=== PATIENT | female | born 1930 | race Caucasian/White ===

== ENCOUNTER 2020-11-25 13:39 | Inpatient (IN) | payer MEDICARE, OTHER ==
[~2020-11-25] VITALS: Ht 160 cm; Wt 79.4 kg
--- NOTE | 2020-11-25 14:00 | NUR ---
tr placed pt on vapotherm luis flow oxygen, 40 litre/100%, per md order.
--- NOTE | 2020-11-25 14:26 | NUR ---
PT UNABLE TO PROVIDE INFORMATION ON MEDICATIONS AT THIS TIME.
[2020-11-25 15:02] LABS: CREATININE 0.8 mg/dL (0.6-1.3); POTASSIUM 3.6 mmol/L (3.5-5.1)
[2020-11-25 15:06] LABS: BASOPHILS % (AUTO) 0.3 % (0.0-2.0); HEMATOCRIT 35.5 % (31.2-41.9); HEMOGLOBIN 11.9 g/dL (10.9-14.3); LYMPHOCYTES # (AUTO) 0.5 K/uL (20.0-40.0); LYMPHOCYTES % (AUTO) 4.5 % (20.5-51.5); MEAN CORPUSCULAR HEMOGLOBIN 30.6 uug (24.7-32.8); MEAN CORPUSCULAR HGB CONC 34 g/dL (32.3-35.6); MEAN CORPUSCULAR VOLUME 91.3 fL (75.5-95.3); MONOCYTES # (AUTO) 0.5 K/uL (2.0-10.0); MONOCYTES % (AUTO) 5.3 % (0.0-11.0); NEUTROPHILS # (AUTO) 9.2 K/uL (1.8-8.9); NEUTROPHILS % (AUTO) 89.9 % (38.5-71.5); PLATELET COUNT (AUTO) 163 K/uL (179-408); RED BLOOD CELL COUNT(AUTO) 3.89 MIL/uL (3.63-4.92); WHITE BLOOD COUNT (AUTO) 10.2 K/uL (3.8-11.8)
[2020-11-25 15:19] LABS: BILIRUBIN,TOTAL 0.5 mg/dL (0.2-1.0); TOTAL PROTEIN, SERUM 6.1 g/dL (6.4-8.2)
[2020-11-25] MEDS ORDERED: DEXAMETHASONE SOD PHOSPHATE 4 MG INJ IV ONE (16:00)
[2020-11-25] MEDS ORDERED: FUROSEMIDE 20 MG/2 ML VIAL IV ONE (16:00)
[2020-11-25 16:07] LABS: *BILIRUBIN,URIN NEGATIVE (NEGATIVE); *BLOOD, URINE NEGATIVE (NEGATIVE); *CLARITY,URINE CLEAR (CLEAR); *COLOR,URINE YELLOW (YELLOW); *KETONES,URINE NEGATIVE (NEGATIVE); *UROBILINOGEN,URINE 0.2 E.U./dl (NORMAL); LEUKOCYTE ESTERASE ,URINE NEGATIVE (NEGATIVE); NITRITE, URINE NEGATIVE (NEGATIVE); PH,URINE 6.5 (5.0-8.0); UGLUCOSE NEGATIVE (NEGATIVE)
[2020-11-25] MEDS ORDERED: DEXAMETHASONE SOD PHOSPHATE 10 MG INJ ONE (16:15)
[2020-11-25] MEDS ORDERED: FUROSEMIDE 20 MG/2 ML VIAL ONE (16:16)
--- NOTE | 2020-11-25 16:35 | NUR ---
DR. WILEY ACCEPTED THE PT TO TELE. Addendum: 11/25/20 at 1721 by MAURISIO PUI STATUS AT THIS POINT
--- NOTE | 2020-11-25 17:25 | NUR ---
PT VOIDED IN THE BEDSIDE COMMODE MULTIPLE TIMES.
[2020-11-25] MEDS ORDERED: ASPIRIN 81 MG TAB.CHEW PO ONE (17:30)
[2020-11-25] MEDS ORDERED: ACETAMINOPHEN 325 MG TABLET PO PRN (17:30)
[2020-11-25] MEDS ORDERED: ONDANSETRON 4 MG/2 ML VIAL IV PRN (17:30)
[2020-11-25] MEDS ORDERED: MAGNESIUM HYDROXIDE 30 ML LIQUID UDC PO PRN (17:30)
[2020-11-25] MEDS: ENOXAPARIN SODIUM 40 MG/0.4 ML DISP.SYRIN SQ SCH (18:09)
[2020-11-25] MEDS ORDERED: ASPIRIN 81 MG TAB.CHEW ONE (18:09)
[2020-11-25] MEDS ORDERED: ENOXAPARIN SODIUM 40 MG/0.4 ML DISP.SYRIN SQ ONE (18:09)
--- NOTE | 2020-11-25 19:10 | NUR ---
PT REAMINED CALM ON BED, NO SIGN OF DISTRESS. PT ON HIGH FLOW OXYGEN, SAT 93%.
--- NOTE | 2020-11-25 23:07 | NUR ---
MED SURG/TELE floor contacted, told JUAN MANUEL SMITH will call back.
--- NOTE | 2020-11-25 23:15 | NUR ---
Report given to JUAN MANUEL Hess. Pt. admitted to [facility], under care of Dr. Rodriguez. Patient is ambulatory with assistance, belongs list completed, vital signs are stable.
--- NOTE | 2020-11-25 23:45 | NUR ---
Respiratory department contacted to assist with patient move d/t patient being on high flow oxygen.
--- NOTE | 2020-11-26 | NUR ---
Hardy james in [facility] - 11/26/20 at 0131 by MAURICIO Respiratory department contacted to assist with patient transfer d/t high flow oxygen on patient.
--- NOTE | 2020-11-26 00:20 | NUR ---
Patient transported with assistance of respiratory therapist upstairs on gurney to room 302. Patient was transported with all belongings, oxygen therapy and monitoring.
--- NOTE | 2020-11-26 01:20 | NUR ---
RECEIVED PT FROM ER [facility]IA [facility]. UNDER DR. WILEY. DX: ACUTE RESPIRATORY FAILURE. BELONGING LIST DONE. ADMISSION PROCESS AND CARE PLAN INITIATED. RESIDENTIAL ASSESSMENT DONE. PT ON HIGH FLOW AT 40L. SAFETY AND COMFORT PROVIDED. WILL CONTINUE TO MONITOR.
[2020-11-26 02:00] VITALS: BP 155/67
[2020-11-26 04:12] VITALS: BP 143/68
--- NOTE | 2020-11-26 06:23 | NUR ---
PT SLEPT INTERMITTENTLY. PT IN NO ACUTE DISTRESS. IV INTACT. PT ON 40L HIGH FLOW. PRESCRIBED MEDICATION GIVEN AND PT TOLERATED IT WELL. SAFETY AND COMFORT PROVIDED. WILL CONTINUE TO MONITOR.
--- NOTE | 2020-11-26 06:24 | NUR ---
PT ON 20L HIGH FLOW NASAL CANNULA ON 100%
[2020-11-26 08:28] LABS: BASOPHILS % (AUTO) 0.1 % (0.0-2.0); HEMATOCRIT 34.1 % (31.2-41.9); HEMOGLOBIN 11.7 g/dL (10.9-14.3); LYMPHOCYTES # (AUTO) 0.5 K/uL (20.0-40.0); LYMPHOCYTES % (AUTO) 6.6 % (20.5-51.5); MEAN CORPUSCULAR HEMOGLOBIN 31.3 uug (24.7-32.8); MEAN CORPUSCULAR HGB CONC 34 g/dL (32.3-35.6); MEAN CORPUSCULAR VOLUME 91.2 fL (75.5-95.3); MONOCYTES # (AUTO) 0.5 K/uL (2.0-10.0); MONOCYTES % (AUTO) 6.3 % (0.0-11.0); NEUTROPHILS # (AUTO) 7.1 K/uL (1.8-8.9); PLATELET COUNT (AUTO) 211 K/uL (179-408); RED BLOOD CELL COUNT(AUTO) 3.74 MIL/uL (3.63-4.92); WHITE BLOOD COUNT (AUTO) 8.1 K/uL (3.8-11.8)
[2020-11-26 08:53] LABS: MAGNESIUM 1.9 mg/dL (1.8-2.4); PHOSPHOROUS 3.6 mg/dL (2.5-4.9); POTASSIUM 3.1 mmol/L (3.5-5.1)
[2020-11-26] MEDS: DEXAMETHASONE SOD PHOSPHATE 4 MG INJ IV SCH (10:00)
[2020-11-26] MEDS ORDERED: POTASSIUM CHLORIDE 20 MEQ TAB.PRT.SR PO ONE (10:15)
[2020-11-26 11:38] VITALS: BP 158/81
[2020-11-26 15:58] VITALS: BP 144/64
[2020-11-26] MEDS ORDERED: FUROSEMIDE 40 MG/4 ML VIAL IV ONE (18:00)
--- NOTE | 2020-11-26 19:30 | NUR ---
Pt received in bed, awake and alert. Denies pain or any difficulty breathing at this time. Bed is locked and in lowest position. On 20L sating at 95% and tolerating well. No other issues or concerns at this time.
--- NOTE | 2020-11-26 19:39 | NUR ---
EOSS: Pt awake in bed, no s/s of acute distress. Luxembourger speaking, utilized [employer] supervisor paint department phone. Via supervisor paint department, pt aware of lab results and medications ordered. Verified that pt consented to treatment and care as ordered. Pt able to make needs known via supervisor paint department. Notified Dr. Rodriguez of positive PCR COVID results at 1618. Dr. Main also aware of results, visited pt. Spoke with pts daughter Miko at multiple times throughout shift. Explained plan of care, medications given, lab results. Pt on 20L high flow with O2 sat 97%. All care given as ordered. All due medications administered per order. L AC saline lock patent and intact. Safety measures and fall precautions maintained during shift. Call light and belongings within reach. Will endorse care to night worker nurse.
[2020-11-26] MEDS ORDERED: REMDESIVIR (CHARGED) 200 MG in IV NORMAL SALINE 210 ML IV ONE (20:00)
[2020-11-26 21:00] VITALS: BP 171/72
[2020-11-26] MEDS: ENOXAPARIN SODIUM 40 MG/0.4 ML DISP.SYRIN SQ SCH (21:01)
[2020-11-27] VITALS: BP 165/73
[2020-11-27 04:00] VITALS: BP 154/55
--- NOTE | 2020-11-27 06:59 | NUR ---
Pt slept throughout the night with no complaints. Denies pain or SOB at this time. SR on monitor. No other concerns at this time. Will endorse to day shift.
[2020-11-27 09:21] LABS: ABG BASE EXCESS 1.5 mmol/L; ABG HCO3 23.5 mmol/L; ABG PCO2 29.7 mmHg (35.0-45.0); ABG PH 7.516 (7.350-7.450); ABG PO2 80.4 mmHg (75.0-100.0); ABG SITE LEFT RADIAL; ABG TOTAL HEMOGLOBIN 13.7 G/dL (12.0-16.0); COHb 0.6 % (0.5-1.5); MetHb 0.2 % (0.0-1.5); O2Hb 96.2 % (94.0-97.0)
[2020-11-27] MEDS: DEXAMETHASONE SOD PHOSPHATE 4 MG INJ IV SCH (09:25)
[2020-11-27 09:28] LABS: BILIRUBIN,DIRECT 0.2 mg/dL (0.0-0.2); BILIRUBIN,TOTAL 0.5 mg/dL (0.2-1.0); CREATININE 0.8 mg/dL (0.6-1.3); POTASSIUM 3.2 mmol/L (3.5-5.1); TOTAL PROTEIN, SERUM 6.8 g/dL (6.4-8.2)
[2020-11-27 09:47] LABS: BASOPHILS # (AUTO) 0.1 K/uL (0.0-8.0); BASOPHILS % (AUTO) 0.6 % (0.0-2.0); HEMATOCRIT 36.1 % (31.2-41.9); HEMOGLOBIN 11.8 g/dL (10.9-14.3); LYMPHOCYTES # (AUTO) 0.5 K/uL (20.0-40.0); LYMPHOCYTES % (AUTO) 3.9 % (20.5-51.5); MEAN CORPUSCULAR HEMOGLOBIN 30.2 uug (24.7-32.8); MEAN CORPUSCULAR HGB CONC 33 g/dL (32.3-35.6); MEAN CORPUSCULAR VOLUME 92.1 fL (75.5-95.3); MONOCYTES # (AUTO) 0.8 K/uL (2.0-10.0); MONOCYTES % (AUTO) 6.6 % (0.0-11.0); NEUTROPHILS # (AUTO) 10.7 K/uL (1.8-8.9); NEUTROPHILS % (AUTO) 88.9 % (38.5-71.5); PLATELET COUNT (AUTO) 261 K/uL (179-408); RED BLOOD CELL COUNT(AUTO) 3.92 MIL/uL (3.63-4.92); WHITE BLOOD COUNT (AUTO) 12.1 K/uL (3.8-11.8)
[2020-11-27 11:43] VITALS: BP 135/59
[2020-11-27] MEDS ORDERED: POTASSIUM CHLORIDE 20 MEQ POWDER PACKET PO ONE (13:15)
[2020-11-27] MEDS: HYDROCODONE/APAP 5-325MG TABLET PO PRN (15:46)
[2020-11-27 16:00] VITALS: BP 140/67
--- NOTE | 2020-11-27 19:30 | NUR ---
Pt received in bed. Awake and alert. Does not appear to be in any acute distress at this time. On 20 L NC and tolerating well. SR on monitor. Denies pain or SOB. No other issues or concerns at this time.
[2020-11-27 20:00] VITALS: BP 162/86
[2020-11-27] MEDS: REMDESIVIR (CHARGED) 100 MG in IV NORMAL SALINE 100 ML IV SCH (20:15)
[2020-11-27] MEDS: ENOXAPARIN SODIUM 40 MG/0.4 ML DISP.SYRIN SQ SCH (20:17)
[2020-11-28] VITALS: BP 138/67
[2020-11-28 04:00] VITALS: BP 142/86
--- NOTE | 2020-11-28 06:36 | NUR ---
Pt slept throughout the night with no complaints. Pt is on 20L and is sating at 94%. She has a continuous pulse ox monitor. Does not appear to be in any acute distress. Safety and comfort provided throughout the night. Bed is locked and in lowest position, call light is within reach. No other issues or concerns at this time. Will endorse to day shift.
[2020-11-28 06:52] LABS: BASOPHILS % (AUTO) 0.1 % (0.0-2.0); HEMATOCRIT 35.5 % (31.2-41.9); HEMOGLOBIN 11.6 g/dL (10.9-14.3); LYMPHOCYTES # (AUTO) 0.6 K/uL (20.0-40.0); LYMPHOCYTES % (AUTO) 4.6 % (20.5-51.5); MEAN CORPUSCULAR HGB CONC 33 g/dL (32.3-35.6); MONOCYTES # (AUTO) 0.9 K/uL (2.0-10.0); MONOCYTES % (AUTO) 7.3 % (0.0-11.0); NEUTROPHILS # (AUTO) 11.4 K/uL (1.8-8.9); PLATELET COUNT (AUTO) 301 K/uL (179-408); RED BLOOD CELL COUNT(AUTO) 3.86 MIL/uL (3.63-4.92); WHITE BLOOD COUNT (AUTO) 12.9 K/uL (3.8-11.8)
[2020-11-28] MEDS ORDERED: POTASSIUM CHLORIDE 20 MEQ TAB.PRT.SR PO ONE (07:15)
[2020-11-28 07:46] LABS: BILIRUBIN,DIRECT 0.2 mg/dL (0.0-0.2); BILIRUBIN,TOTAL 0.5 mg/dL (0.2-1.0); CREATININE 0.9 mg/dL (0.6-1.3); TOTAL PROTEIN, SERUM 6.3 g/dL (6.4-8.2)
[2020-11-28] MEDS: DEXAMETHASONE SOD PHOSPHATE 4 MG INJ IV SCH (08:24)
[2020-11-28 08:45] VITALS: BP 132/64
[2020-11-28 11:55] VITALS: BP 145/68
[2020-11-28] MEDS: HYDROCODONE/APAP 5-325MG TABLET PO PRN (15:42)
[2020-11-28 16:00] VITALS: BP 107/70
[2020-11-28] MEDS: ZINC SULFATE 220 MG CAPSULE PO SCH (17:19)
[2020-11-28] MEDS: CHOLECALCIFEROL 1,000 UNIT TABLET PO SCH (17:19)
--- NOTE | 2020-11-28 19:30 | NUR ---
Pt received in bed, awake and alert. Denies pain or SOB. Sating 96% on 20L. Pt was assisted to bed side commode and pt tolerated activity well. Call light is within reach. No other issues or concerns at this time.
[2020-11-28] MEDS: MELATONIN 3 MG TABLET PO SCH (20:26)
[2020-11-28] MEDS: REMDESIVIR (CHARGED) 100 MG in IV NORMAL SALINE 100 ML IV SCH (20:26)
[2020-11-28] MEDS: ENOXAPARIN SODIUM 40 MG/0.4 ML DISP.SYRIN SQ SCH (20:28)
[2020-11-28 20:37] VITALS: BP 139/54
[2020-11-29 01:34] VITALS: BP 124/76
[2020-11-29 05:09] VITALS: BP 129/57
--- NOTE | 2020-11-29 06:09 | NUR ---
Pt slept throughout the night. On 20L sating at 99%. Afib on monitor. Pt is stable. Safety and comfort provided. Call light within reach. Bed is locked and in lowest position. No other other issues or concerns at this time. Will endorse to day shift.
[2020-11-29 07:30] LABS: BASOPHILS % (AUTO) 0.1 % (0.0-2.0); HEMATOCRIT 34.5 % (31.2-41.9); HEMOGLOBIN 11.2 g/dL (10.9-14.3); LYMPHOCYTES # (AUTO) 0.6 K/uL (20.0-40.0); MEAN CORPUSCULAR HEMOGLOBIN 29.9 uug (24.7-32.8); MEAN CORPUSCULAR HGB CONC 32 g/dL (32.3-35.6); MEAN CORPUSCULAR VOLUME 92.6 fL (75.5-95.3); MONOCYTES # (AUTO) 1.1 K/uL (2.0-10.0); MONOCYTES % (AUTO) 8.7 % (0.0-11.0); NEUTROPHILS # (AUTO) 10.9 K/uL (1.8-8.9); NEUTROPHILS % (AUTO) 86.2 % (38.5-71.5); PLATELET COUNT (AUTO) 327 K/uL (179-408); RED BLOOD CELL COUNT(AUTO) 3.73 MIL/uL (3.63-4.92); WHITE BLOOD COUNT (AUTO) 12.7 K/uL (3.8-11.8)
[2020-11-29 08:08] LABS: BILIRUBIN,DIRECT 0.2 mg/dL (0.0-0.2); BILIRUBIN,TOTAL 0.3 mg/dL (0.2-1.0); CREATININE 0.7 mg/dL (0.6-1.3); TOTAL PROTEIN, SERUM 5.8 g/dL (6.4-8.2)
[2020-11-29] MEDS: DEXAMETHASONE SOD PHOSPHATE 4 MG INJ IV SCH (08:45)
[2020-11-29] MEDS: CHOLECALCIFEROL 1,000 UNIT TABLET PO SCH (08:45)
[2020-11-29] MEDS: ZINC SULFATE 220 MG CAPSULE PO SCH ×2 (08:46→20:18)
[2020-11-29 12:02] VITALS: BP 146/78
--- NOTE | 2020-11-29 13:11 | NUR ---
CALLED AND SPOKE WITH PATIENTS DAUGHTER RE LIST OF HOME MEDICATIONS STATED THAT PATIENT LIVES ALONE AND IS UNABLE TO PROVIDE THE LIST SO I ASKED HER FOR THE NAME OF HER PHARMACY AND SHE PROVIDED [facility] [phone] BUT SHE STATED THAT THE PHARMACY IS CLOSED UNTIL TUESDAY.
[2020-11-29 16:00] VITALS: BP 160/64
[2020-11-29] MEDS: Z GUARD REMEDY PASTE 57 GM TUBE TOP PRN (17:26)
--- NOTE | 2020-11-29 18:00 | NUR ---
RESTING GETS EASILY AGITATED AND RESTLESS WANTS TO SIT ON THE COMMODE FOR LONG PEROIDS OF TIME ASSISTED NEEDED MADE COMFORTABLE.
[2020-11-29] MEDS: ENOXAPARIN SODIUM 40 MG/0.4 ML DISP.SYRIN SQ SCH (20:20)
[2020-11-29] MEDS: MELATONIN 3 MG TABLET PO SCH (20:39)
[2020-11-29] MEDS: REMDESIVIR (CHARGED) 100 MG in IV NORMAL SALINE 100 ML IV SCH (20:48)
--- NOTE | 2020-11-29 21:15 | NUR ---
PT awake lying comfortably in bed. PT received her IV Remdesivir at 2047, reassessed vitals within 15min, Bp 139/60 Temp 95.1 Pulse 71 RR 19 sating at 98%. Afib on monitor. Pt is stable. Safety and comfort provided. Call light within reach. Bed is locked and in lowest position. No other other issues or concerns at this time.
[2020-11-29 21:17] VITALS: BP 148/58
[2020-11-30 01:05] VITALS: BP 152/60
--- NOTE | 2020-11-30 05:45 | NUR ---
PT slept on and off throughout the night. PT ambulated to the commode several times throughout the night. PT on high flow nasal cannula at 20L sating at 98%-100%. Tolerated all medications that were given. Will continue to monitor the PT and endorse the morning shift nurse.
[2020-11-30 06:40] VITALS: BP 164/71
--- NOTE | 2020-11-30 08:15 | NUR ---
RECEIVED PATIENT IN BED AWAKE ALERT ORIENTED WITH LANGUAGE BARRIER BUT IS ABLE TO MAKE SIMPLE NEEDS KNOWN IN [facility] REMAIN ON HI DUONG O2 AT 20LITERS WITH SATURATION AT 99 PERCENT WITH NO SHORTNESS OF BREATH AT THIS TIME CALL LIGHTS AND HER PERSONAL BELONGINGS ARE WITHIN EASY REACH WILL CONTINUE TO OBSERVE.
[2020-11-30] MEDS: CHOLECALCIFEROL 1,000 UNIT TABLET PO SCH (08:48)
[2020-11-30] MEDS: ZINC SULFATE 220 MG CAPSULE PO SCH ×2 (08:48→20:35)
[2020-11-30] MEDS: DEXAMETHASONE SOD PHOSPHATE 4 MG INJ IV SCH (08:48)
[2020-11-30 09:07] LABS: BASOPHILS % (AUTO) 0.1 % (0.0-2.0); HEMATOCRIT 33.5 % (31.2-41.9); HEMOGLOBIN 10.9 g/dL (10.9-14.3); LYMPHOCYTES # (AUTO) 0.6 K/uL (20.0-40.0); LYMPHOCYTES % (AUTO) 5.2 % (20.5-51.5); MEAN CORPUSCULAR HGB CONC 33 g/dL (32.3-35.6); MEAN CORPUSCULAR VOLUME 92.1 fL (75.5-95.3); MONOCYTES # (AUTO) 1.2 K/uL (2.0-10.0); MONOCYTES % (AUTO) 9.9 % (0.0-11.0); NEUTROPHILS # (AUTO) 10.5 K/uL (1.8-8.9); NEUTROPHILS % (AUTO) 84.8 % (38.5-71.5); PLATELET COUNT (AUTO) 352 K/uL (179-408); RED BLOOD CELL COUNT(AUTO) 3.64 MIL/uL (3.63-4.92); WHITE BLOOD COUNT (AUTO) 12.4 K/uL (3.8-11.8)
[2020-11-30 09:08] LABS: BILIRUBIN,DIRECT 0.2 mg/dL (0.0-0.2); BILIRUBIN,TOTAL 0.4 mg/dL (0.2-1.0); CREATININE 0.9 mg/dL (0.6-1.3); POTASSIUM 4.5 mmol/L (3.5-5.1)
--- NOTE | 2020-11-30 09:30 | NUR ---
DR WILEY HERE TO SEE PATIENT WITH NO NEW ORDERS AT THIS TIME.WILL CONTINUE TO OBSERVE.
--- NOTE | 2020-11-30 11:35 | NUR ---
SPOKE WITH LAWRENCE AT THE [facility] STATED THAT HE IS CLOSED TODAY AND THAT I SHOULD CALL HIM TOMORROW.I ALSO CALLED PATIENTS DAUGHTER AND UPDATED HER ON THE PATIENTS CURRENT CONDITION SINCE SHE HAS PREVIOUSLY CALLED ME SHE WANTS TO TALK WITH DR WILEY AND WANTS A PSYCHOLOGIST TO BE ORDERED FOR HER MOM NOTIFIED HER THAT DR WILEY HAS ALREADY MADE ROUNDS AND LEFT AND THAT I WILL LEAVE A MESSAGE FOR HIM AND I DID.
[2020-11-30 12:00] VITALS: BP 178/71
--- NOTE | 2020-11-30 13:00 | NUR ---
BLOOD PRESSURE AT THIS TIME IS 163/67 HEART RATE IS 67 PATIENT IS ASSYMPTOMATIC AND RESTING IN BED CALLED DR WILEY AND LEFT HIM A MESSAGE IN HIS VOICE MAIL
[2020-11-30 16:00] VITALS: BP 171/67
[2020-11-30 19:08] LABS: EOSINOPHILS % (MANUAL) 4 % (0-8); LYMPHOCYTES % (MANUAL) 13 % (20-40); MONOCYTES % (MANUAL) 6 % (2-10); NEUTROPHILS % (MANUAL) 77 % (42-75)
--- NOTE | 2020-11-30 19:17 | NUR ---
BLOOD PRESSURE IS 171/67 HR IS [address] WILEY AND LEFT A MESSAGE AWAITING FOR RETURN CALL.ENDORSED.
--- NOTE | 2020-11-30 19:35 | NUR ---
DR WILEY RETURNED CALL AND STATED TO CHECK THE BLOOD PRESSURE MANUALLY BUT AT THIS TIME THE NIGHT CASINO DEALER JUST CHECKED THE B/P AND ITS 148/60 DR WILEY NOTIFIED BUT HE STATED THAT HE STILL WANTS THE BLOOD PRESSURE TO BE CHECKED MANUALLY WE AT THIS TIME UNABLE TO FIND A MANUAL B/P CUFF SO ENDORSED TO THE NIGHT NURSE AND SHE WILL BRAIN STORM WITH THE CRITICAL CARE PHYSICIAN TO FIND A MANUAL BLOOD PRESSURE MACHINE.
[2020-11-30 20:00] VITALS: BP 148/60
[2020-11-30] MEDS: REMDESIVIR (CHARGED) 100 MG in IV NORMAL SALINE 100 ML IV SCH (20:34)
[2020-11-30] MEDS: MELATONIN 3 MG TABLET PO SCH (20:35)
[2020-11-30] MEDS: ENOXAPARIN SODIUM 40 MG/0.4 ML DISP.SYRIN SQ SCH (20:42)
--- NOTE | 2020-11-30 21:45 | NUR ---
Patient alert x4.Denies pain . On O2 inhalation at 5 LPM via nc saturating at 96 %.Patient uses bedside commode .Voided well.Midline in left upper arm patent and intact.Administered Remdesivir IV .No a/r noted.Tolerated well. No available manual BP cuff at this time.Mold Forms Builder made aware. Call light with in reach .Will continue to f/u manual BP cuff.VS taken post remdesivir adm. 126/54 ,64 ,18 , 97.8
[2020-12-01] VITALS: BP 143/51
[2020-12-01 04:00] VITALS: BP 161/67
[2020-12-01 05:00] VITALS: BP 143/86
[2020-12-01 07:44] LABS: BASOPHILS % (AUTO) 0.4 % (0.0-2.0); EOSINOPHILS % (AUTO) 0.2 % (0.0-7.0); HEMATOCRIT 31.1 % (31.2-41.9); HEMOGLOBIN 10.4 g/dL (10.9-14.3); LYMPHOCYTES # (AUTO) 0.2 K/uL (20.0-40.0); LYMPHOCYTES % (AUTO) 1.7 % (20.5-51.5); MEAN CORPUSCULAR HEMOGLOBIN 30.7 uug (24.7-32.8); MEAN CORPUSCULAR HGB CONC 33 g/dL (32.3-35.6); MEAN CORPUSCULAR VOLUME 91.8 fL (75.5-95.3); MONOCYTES % (AUTO) 8.9 % (0.0-11.0); NEUTROPHILS # (AUTO) 10.4 K/uL (1.8-8.9); NEUTROPHILS % (AUTO) 88.8 % (38.5-71.5); PLATELET COUNT (AUTO) 342 K/uL (179-408); RED BLOOD CELL COUNT(AUTO) 3.39 MIL/uL (3.63-4.92); WHITE BLOOD COUNT (AUTO) 11.7 K/uL (3.8-11.8)
[2020-12-01 08:07] LABS: CREATININE 0.9 mg/dL (0.6-1.3); POTASSIUM 4.7 mmol/L (3.5-5.1)
[2020-12-01] MEDS: DEXAMETHASONE SOD PHOSPHATE 4 MG INJ IV SCH (08:33)
[2020-12-01] MEDS: CHOLECALCIFEROL 1,000 UNIT TABLET PO SCH (08:33)
[2020-12-01] MEDS: ZINC SULFATE 220 MG CAPSULE PO SCH ×2 (08:33→21:34)
[2020-12-01] MEDS: Z GUARD REMEDY PASTE 57 GM TUBE TOP PRN (08:34)
--- NOTE | 2020-12-01 09:00 | NUR ---
AWAKE ALERT AND ORIENTED WITH LANGUAGE BARRIERS BUT IS ABLE TO MAKE NEEDS KNOWN REMAIN ON O2 BY MASK AT 5L WITH NO SOB AT THIS TIME REMAIN ON RESPIRATORY ISOLATION AND PRECAUTION RELATED TO POSITIVE COVID ORDERED. CALL LIGHTS AND PERSONAL BELONGINGS ARE WITHIN EASY REACH AT THIS TIME WILL CONTINUE TO OBSERVE
[2020-12-01] MEDS ORDERED: AMLODIPINE 5 MG TABLET PO SCH (11:15)
[2020-12-01 11:30] VITALS: BP 154/60
--- NOTE | 2020-12-01 12:30 | NUR ---
CALLED [facility] SPOKE WITH NORIS AND HE FAXED ME THE PATIENTS CURRENT MEDICATIONS LIST AND I PLACED THEM INTO THE COMPUTER HER HOME MEDS AND KAYLIE AT THE PHARMACY NOTIFIED AND MESSAGE SENT TO DR INEZ CRESPO NEW HOME MED LIST.
[2020-12-01] MEDS ORDERED: MECL-159 PO (13:32)
[2020-12-01] MEDS ORDERED: LIFI1DRO OP (13:32)
[2020-12-01] MEDS ORDERED: ESTR42.5 VG (13:32)
[2020-12-01] MEDS ORDERED: HYDR30CR99 TP (13:32)
[2020-12-01] MEDS ORDERED: OLME40TA12 PO (13:32)
[2020-12-01] MEDS ORDERED: TRIA15CR2 TP (13:32)
[2020-12-01] MEDS ORDERED: CYCL1DRO6 OP (13:32)
[2020-12-01] MEDS ORDERED: DOCU250C14 PO (13:32)
[2020-12-01] MEDS ORDERED: HYDR453.4 TP (13:32)
[2020-12-01] MEDS ORDERED: CETI1DRO EACHEYE (13:32)
[2020-12-01] MEDS ORDERED: LIPA1CAP15 PO (13:32)
[2020-12-01] MEDS ORDERED: DULO60CA45 PO (13:32)
[2020-12-01] MEDS ORDERED: [UNRECOGNIZED DRUG - OTHER] (13:32)
[2020-12-01] MEDS ORDERED: DIPH25CA83 PO (13:32)
[2020-12-01] MEDS ORDERED: MOME15OI2 TP (13:32)
[2020-12-01] MEDS ORDERED: CLON0.5T4 PO (13:32)
[2020-12-01] MEDS ORDERED: AMLO10TA59 PO (13:32)
[2020-12-01] MEDS ORDERED: ESOM40CA PO (13:32)
[2020-12-01] MEDS ORDERED: ACET1TAB23 PO (13:32)
[2020-12-01] MEDS ORDERED: DICL1PAT11 TP (13:32)
[2020-12-01] MEDS ORDERED: DICY20TA11 PO (13:32)
[2020-12-01] MEDS ORDERED: ZOLP5TAB8 PO (13:32)
[2020-12-01] MEDS ORDERED: DICL (13:32)
--- NOTE | 2020-12-01 13:54 | NUR ---
ATTEMPTED TO CALL APTIENTS DAUGHTER BECAUSE I GOT THE MESSAGE THAT SHE HAD CALLED ME EARLIER BUT I WAS BUSY SHE DID NOT CAB DRIVER THE PHONE SO I LEFT HER A MESSAGE.
[2020-12-01 15:00] VITALS: BP 164/62
[2020-12-01] MEDS ORDERED: ACETAMINOPHEN/CODEINE 300-30 MG TABLET PO PRN (16:15)
[2020-12-01] MEDS ORDERED: LIFITEGRAST OP PRN (16:15)
[2020-12-01 16:37] LABS: LYMPHOCYTES % (MANUAL) 4 % (20-40); MONOCYTES % (MANUAL) 7 % (2-10); NEUTROPHILS % (MANUAL) 89 % (42-75)
[2020-12-01] MEDS ORDERED: HYDROCORTISONE 2.5 % RECTAL CREAM 28.35 GM TUBE RC SCH (17:00)
[2020-12-01] MEDS: LIPASE/PROTEASE/AMYLASE 4200 UNITS CAPSULE.DR PO SCH (17:00)
[2020-12-01] MEDS ORDERED: LIPASE/PROTEASE/AMYLASE 4200 UNITS CAPSULE.DR PO SCH (17:00)
[2020-12-01] MEDS: HYDROCORTISONE 2.5% ONT. 28.35 GM TUBE TP SCH (17:00)
[2020-12-01] MEDS ORDERED: CYCLOSPORINE OP SCH (17:00)
[2020-12-01] MEDS: AMLODIPINE 10 MG TABLET PO SCH (17:24)
--- NOTE | 2020-12-01 18:00 | NUR ---
ANOTHER CALL RECEIVED FROM PATIENTS DAUGHTER SO I RETURNED HER CALL SPOKE WITH HER AND SHE STATED THAT HER MOM WAS COUGHING HAS NOT HEARD THE PATIENT COUGH ALL DAY SPOKE WITH DR WILEY WITH NO NEW ORDERS STATED THAT HE DIS NOT HEAR THE PATIENT COUGH EITHER WILL MONITOR AND OBSERVE FOR COUGH D/C PLANNING O2 IS DOWN GRADED TO 3L/M BY NASAL CANULLA WITH SATS AT 95 PERCENT.WILL CONTINUE TO OBSERVE.
[2020-12-01 20:20] VITALS: BP 149/68
[2020-12-01] MEDS ORDERED: [UNRECOGNIZED DRUG - REMARK] PO SCH (21:00)
[2020-12-01] MEDS: DOCUSATE SODIUM 250 MG CAPSULE PO SCH (21:34)
[2020-12-01] MEDS: MELATONIN 3 MG TABLET PO SCH (21:34)
[2020-12-01] MEDS: ENOXAPARIN SODIUM 40 MG/0.4 ML DISP.SYRIN SQ SCH (21:36)
[2020-12-02 00:09] VITALS: BP 151/68
[2020-12-02 04:00] VITALS: BP 144/59
[2020-12-02] MEDS: DEXAMETHASONE SOD PHOSPHATE 4 MG INJ IV SCH (08:22)
[2020-12-02] MEDS: PANTOPRAZOLE SODIUM 40 MG TABLET.DR PO SCH (08:22)
[2020-12-02] MEDS: DULOXETINE 60 MG CAPSULE.DR PO SCH (08:22)
[2020-12-02] MEDS: ZINC SULFATE 220 MG CAPSULE PO SCH ×2 (08:22→20:03)
[2020-12-02] MEDS: CHOLECALCIFEROL 1,000 UNIT TABLET PO SCH (08:23)
[2020-12-02] MEDS: AMLODIPINE 10 MG TABLET PO SCH (08:24)
[2020-12-02] MEDS: LOSARTAN POTASSIUM 50 MG TABLET PO SCH (08:24)
[2020-12-02] MEDS: LIPASE/PROTEASE/AMYLASE 4200 UNITS CAPSULE.DR PO SCH ×3 (08:26→16:52)
[2020-12-02] MEDS: HYDROCORTISONE 2.5% ONT. 28.35 GM TUBE TP SCH ×2 (08:27→16:53)
[2020-12-02] MEDS: DICYCLOMINE HCL 20 MG TABLET PO SCH (08:27)
[2020-12-02] MEDS ORDERED: CLONAZEPAM 0.5 MG TABLET PO PRN (09:00)
[2020-12-02] MEDS ORDERED: MECLIZINE HCL 25 MG TABLET PO PRN (09:00)
[2020-12-02] MEDS ORDERED: ESTROGENS,CONJU VAGINAL CREAM 42.5 GM TUBE VG SCH ×2 (09:00→21:00)
--- NOTE | 2020-12-02 09:30 | NUR ---
RECEIVED PATIENT AWAKE ALERT AND ORIENTED FORGETFUL REMAIN ON COVID ISOLATION AND PRECAUTION WITH O2 AT 3L/M BY NASAL CANULLA WITH NO SOB AT THIS TIME DUE MEDS GIVEN CALL LIGHT AND PERSONAL BELONGINGS ARE WITHIN EASY REACH AT THIS TIME WILL CONTINUE TO OBSERVE.
[2020-12-02 11:31] VITALS: BP 130/53
--- NOTE | 2020-12-02 14:29 | NUR ---
CALLED [facility] PATIENTS DAUGHTER RETURNING HER CALL AND SHE STATED THAT SHE WANTED UPDATE AND ALSO STATED THAT THE INSURANCE HAD CALLED AND AND WILL DELIVER OXYGEN AT THE PATIENTS APARTMENT TOMORROW AFTERNOON WILL ENDORSE.
[2020-12-02 15:49] LABS: BASOPHILS # (AUTO) 0.2 K/uL (0.0-8.0); BASOPHILS % (AUTO) 1.2 % (0.0-2.0); HEMATOCRIT 32.3 % (31.2-41.9); HEMOGLOBIN 10.6 g/dL (10.9-14.3); LYMPHOCYTES # (AUTO) 0.3 K/uL (20.0-40.0); MEAN CORPUSCULAR HEMOGLOBIN 30.2 uug (24.7-32.8); MEAN CORPUSCULAR HGB CONC 33 g/dL (32.3-35.6); MEAN CORPUSCULAR VOLUME 92.4 fL (75.5-95.3); MONOCYTES # (AUTO) 0.6 K/uL (2.0-10.0); MONOCYTES % (AUTO) 3.6 % (0.0-11.0); NEUTROPHILS # (AUTO) 14.2 K/uL (1.8-8.9); NEUTROPHILS % (AUTO) 93.2 % (38.5-71.5); PLATELET COUNT (AUTO) 353 K/uL (179-408); WHITE BLOOD COUNT (AUTO) 15.2 K/uL (3.8-11.8)
[2020-12-02 16:00] VITALS: BP 147/55
[2020-12-02 16:07] LABS: BILIRUBIN,TOTAL 0.5 mg/dL (0.2-1.0); POTASSIUM 4.9 mmol/L (3.5-5.1); TOTAL PROTEIN, SERUM 5.7 g/dL (6.4-8.2)
--- NOTE | 2020-12-02 16:15 | NUR ---
RECEIVED A CALL FROM THE LAB RE GLUCOSE IS [address] MINAYA WITH NO NEW ORDERS AT THIS TIME PATIENT IS NOT A [facility] [employer] AND NOT ON ACCUCHECK NOTIFIED THE DOCTOR THAT THE PATIENT IS ON STEROIDS WILL CONTINUE TO OBSERVE PATIENT.
[2020-12-02] MEDS: TRIAMCINOLONE ACET 0.1% CREAM 15 GM TUBE TOP SCH (16:52)
--- NOTE | 2020-12-02 18:00 | NUR ---
PATIENT IS RESTING AT THIS TIME ALL NEEDS ATTENDED MADE COMFORTABLE WILL CONTINUE TO OBSERVE.
--- NOTE | 2020-12-02 19:40 | NUR ---
Pt received in bed resting. Denies pain or SOB at this time. On 2L sating at 99%. No discomfort noted. Bed is locked and in lowest position. Call light is within reach. No other issues or concerns at this time.
[2020-12-02 20:00] VITALS: BP 132/55
[2020-12-02] MEDS: DOCUSATE SODIUM 250 MG CAPSULE PO SCH (20:03)
[2020-12-02] MEDS: MELATONIN 3 MG TABLET PO SCH (20:04)
[2020-12-02] MEDS: ENOXAPARIN SODIUM 40 MG/0.4 ML DISP.SYRIN SQ SCH (20:06)
[2020-12-03] VITALS: BP 161/64
[2020-12-03 04:00] VITALS: BP 150/64
--- NOTE | 2020-12-03 06:38 | NUR ---
Pt slept throughout the night with no complaints. Denies pain or SOB. On 2L NC sating at 100%. Pt is on a continuous pulse ox. Bed is locked and in lowest position. Call light is within reach. Safety and comfort provided. No other issues or concerns at this time. Will endorse to day shift.
[2020-12-03 07:03] LABS: EOSINOPHILS % (AUTO) 0.1 % (0.0-7.0); HEMOGLOBIN 10.9 g/dL (10.9-14.3); LYMPHOCYTES # (AUTO) 0.7 K/uL (20.0-40.0); LYMPHOCYTES % (AUTO) 3.9 % (20.5-51.5); MEAN CORPUSCULAR HEMOGLOBIN 30.3 uug (24.7-32.8); MEAN CORPUSCULAR HGB CONC 33 g/dL (32.3-35.6); MEAN CORPUSCULAR VOLUME 91.7 fL (75.5-95.3); MONOCYTES # (AUTO) 1.3 K/uL (2.0-10.0); MONOCYTES % (AUTO) 7.3 % (0.0-11.0); NEUTROPHILS # (AUTO) 16.4 K/uL (1.8-8.9); NEUTROPHILS % (AUTO) 88.7 % (38.5-71.5); PLATELET COUNT (AUTO) 418 K/uL (179-408); RED BLOOD CELL COUNT(AUTO) 3.59 MIL/uL (3.63-4.92); WHITE BLOOD COUNT (AUTO) 18.4 K/uL (3.8-11.8)
[2020-12-03 07:26] LABS: CREATININE 0.9 mg/dL (0.6-1.3); MAGNESIUM 2.2 mg/dL (1.8-2.4); PHOSPHOROUS 3.4 mg/dL (2.5-4.9); POTASSIUM 4.9 mmol/L (3.5-5.1)
[2020-12-03] MEDS: LIPASE/PROTEASE/AMYLASE 4200 UNITS CAPSULE.DR PO SCH ×3 (08:24→17:30)
[2020-12-03] MEDS: CHOLECALCIFEROL 1,000 UNIT TABLET PO SCH (08:54)
[2020-12-03] MEDS: DULOXETINE 60 MG CAPSULE.DR PO SCH (08:54)
[2020-12-03] MEDS: PANTOPRAZOLE SODIUM 40 MG TABLET.DR PO SCH (08:55)
[2020-12-03] MEDS: DEXAMETHASONE SOD PHOSPHATE 4 MG INJ IV SCH (08:55)
[2020-12-03] MEDS: ZINC SULFATE 220 MG CAPSULE PO SCH ×2 (08:55→20:21)
[2020-12-03] MEDS: DICYCLOMINE HCL 20 MG TABLET PO SCH (08:57)
[2020-12-03] MEDS: TRIAMCINOLONE ACET 0.1% CREAM 15 GM TUBE TOP SCH ×2 (09:16→17:44)
[2020-12-03] MEDS: HYDROCORTISONE 2.5% ONT. 28.35 GM TUBE TP SCH ×2 (09:17→17:44)
[2020-12-03] MEDS: LOSARTAN POTASSIUM 50 MG TABLET PO SCH (09:21)
[2020-12-03] MEDS: AMLODIPINE 10 MG TABLET PO SCH (09:22)
[2020-12-03 12:00] VITALS: BP 141/63
[2020-12-03 16:00] VITALS: BP 132/48
--- NOTE | 2020-12-03 16:49 | NUR ---
preparing pt for discharged, oxygen is titrated down at 11AM to 3LPM Saturation @ 98 %, titrated down at 2PM to 2LPM saturation @ 98%, spoken to catalytic case operator for the discharge procedure, discharge to home with [facility]. Oxygen machine is provided by the daughter at home. the daughter don't want to discharged her mom today until she had covid test. test result will be forwarded to the daughter even after the daughter. PATIENT IS RESTING AT THIS TIME ALL NEEDS ATTENDED MADE COMFORTABLE WILL CONTINUE TO OBSERVE.
--- NOTE | 2020-12-03 20:00 | NUR ---
received pt on 3L O2; pt had Covid swab PCR done by day shift nurse and was sent to lab; not in any acute distress; assisted to BSC.
[2020-12-03] MEDS: DOCUSATE SODIUM 250 MG CAPSULE PO SCH (20:21)
[2020-12-03] MEDS: MELATONIN 3 MG TABLET PO SCH (20:22)
[2020-12-03] MEDS: ENOXAPARIN SODIUM 40 MG/0.4 ML DISP.SYRIN SQ SCH (20:22)
[2020-12-03 20:24] VITALS: BP 135/51
[2020-12-04 04:03] VITALS: BP 136/51
--- NOTE | 2020-12-04 04:27 | NUR ---
PATIENT RESTED WELL; WAS UP TO USE BEDSIDE COMMODE. SAFETY MAINTAINED; TOLERATED CURRENT O2 SETTINGS; WILL CONTINUE TO MONITOR.
[2020-12-04] MEDS: DEXAMETHASONE SOD PHOSPHATE 4 MG INJ IV SCH (08:59)
[2020-12-04] MEDS: LIPASE/PROTEASE/AMYLASE 4200 UNITS CAPSULE.DR PO SCH (08:59)
[2020-12-04] MEDS: CHOLECALCIFEROL 1,000 UNIT TABLET PO SCH (09:01)
[2020-12-04] MEDS: ZINC SULFATE 220 MG CAPSULE PO SCH (09:01)
[2020-12-04] MEDS: DULOXETINE 60 MG CAPSULE.DR PO SCH (09:02)
[2020-12-04] MEDS: PANTOPRAZOLE SODIUM 40 MG TABLET.DR PO SCH (09:02)
[2020-12-04] MEDS: DICYCLOMINE HCL 20 MG TABLET PO SCH (09:04)
[2020-12-04] MEDS: AMLODIPINE 10 MG TABLET PO SCH (09:17)
[2020-12-04 09:18] VITALS: BP 134/65
[2020-12-04] MEDS: HYDROCORTISONE 2.5% ONT. 28.35 GM TUBE TP SCH (09:18)
[2020-12-04] MEDS: LOSARTAN POTASSIUM 50 MG TABLET PO SCH (09:18)
[2020-12-04] MEDS: TRIAMCINOLONE ACET 0.1% CREAM 15 GM TUBE TOP SCH (09:19)
--- NOTE | 2020-12-04 10:45 | NUR ---
DISCHARGED VIA [facility], ACCOMPANIED BY AMBULANCE ATTENDANTS TO HOME. NO C/O DISCOMFORT.
[2020-12-04] MEDS ORDERED: ASPI-612 PO (17:32)
== END 2020-12-04 10:45 | disposition home health service (06) | DRG 177 ==
LOC: ER 13:39 → TRANSITION 17:49 → TELE3 20:22 → MEDSURG3 12-02 15:27
PROVIDERS: ADMIT Family Medicine; ATTEND Student in an Organized Health Care Education/Training Program
PROC: XW033E5 Introduction of Remdesivir Anti-infective into Peripheral Vein, Percutaneous Approach, New Technology Group 5 (ICD-10-PCS; principal; 2020-11-26)
DX: U07.1 COVID-19 (principal); J12.82 Pneumonia due to coronavirus disease 2019; J96.01 Acute respiratory failure with hypoxia; E43 Unspecified severe protein-calorie malnutrition; I21.A1 Myocardial infarction type 2; E87.1 Hypo-osmolality and hyponatremia; G20 Parkinson's disease; E86.1 Hypovolemia; E83.51 Hypocalcemia; E88.09 Other disorders of plasma-protein metabolism, not elsewhere classified; R73.03 Prediabetes; E66.9 Obesity, unspecified; Z68.31 Body mass index [BMI] 31.0-31.9, adult; I35.0 Nonrheumatic aortic (valve) stenosis; R74.8 Abnormal levels of other serum enzymes
CPT/HCPCS: 36415; 36600; 70030-TC; 71045; 83605; 83615; 83735; 84100; 85025; 85610; 85730; 86140; 87040; 87086; 93005; 93307; G0378; J1100; J1650; J1940; J3490; J7030; J7050; U0003